=== PATIENT | male | born 1950 | race Caucasian/White ===

== ENCOUNTER 2023-01-17 06:10 | Day surgery (SDC) | payer MEDICARE, OTHER ==
[2023-01-17] VITALS (20 sets, daily range): BP systolic 117–168; BP diastolic 73–95
[~2023-01-17] VITALS: Ht 182.9 cm; Wt 113.4 kg
[2023-01-17] MEDS ORDERED: ATOR80 PO (06:21)
[2023-01-17] MEDS ORDERED: Aspir 8181 MG PO (06:21)
[2023-01-17] MEDS ORDERED: Vitamin D1000 UNI1 PO (06:21)
[2023-01-17] MEDS ORDERED: DILT30 PO (06:22)
[2023-01-17] MEDS ORDERED: DOXYLAMINE (06:23)
[2023-01-17] MEDS ORDERED: NITR.4SL SL (06:24)
[2023-01-17] MEDS ORDERED: POTCIT10 PO (06:24)
--- NOTE | 2023-01-17 07:33 | NUR ---
PATIENT TOELRATED PROCEDURE WELL WITH ANESTHESIA. PATIENT SITTING UP IN BED CONVERSING APPROPRIATELY. VSS ON ROOM AIR.
--- NOTE | 2023-01-17 07:57 | NUR ---
PACEMAKER CHECKED AT BEDSIDE. PATIENT DISCHARGE INSTRUCTIONS AND MEDICATION LIST REVIEWED WITH PATIENT. PIV REMOVED WITHOUT DIFFICULTY, CATHETER INTACT. VSS ON ROOM AIR.
--- NOTE | 2023-01-17 08:07 | NUR ---
PATIENT DISCHARGED HOME AT THIS TIME. PATIENT ABLE TO AMBULATE WITHOUT DIFFICULTY. DISCHARGE PAPERWORK AND BELONGINGS LEFT WITH PATIENT. SPOUSE, SHU ABLE TO TRANSPORT PATIENT HOME.
== END 2023-01-17 22:57 | disposition home or self-care (01) ==
LOC: MHTC 06:10
DX: I48.0 Paroxysmal atrial fibrillation (principal); Z95.818 Presence of other cardiac implants and grafts; I25.10 Atherosclerotic heart disease of native coronary artery without angina pectoris; Z95.0 Presence of cardiac pacemaker; E78.5 Hyperlipidemia, unspecified; I10 Essential (primary) hypertension; E66.9 Obesity, unspecified; Z87.891 Personal history of nicotine dependence; Z88.8 Allergy status to other drugs, medicaments and biological substances; Z68.33 Body mass index [BMI] 33.0-33.9, adult
CPT/HCPCS: 93280; 93312; 93325; A9270; J2704; J7030

== ENCOUNTER 2025-02-22 08:00 | Emergency (ER) | payer MEDICARE ==
[~2025-02-22] VITALS: Ht 182.9 cm; Wt 111.6 kg
[~2025-02-22 08:00] MED LIST: ATOR80 PO; Aspir 8181 MG PO; DILT30 PO; DOXYLAMINE; NITR.4SL SL; POTCIT10 PO; Vitamin D1000 UNI1 PO
[2025-02-22 09:11] LABS: BASOPHILS ABSOLUTE AUTO 0.03 K/mm3 (0.00-0.23); BASOPHILS PERCENT AUTO 1 % (0-2); EOSINOPHILS ABSOLUTE AUTO 0.13 K/mm3 (0.00-0.68); EOSINOPHILS PERCENT AUTO 2 % (0-6); Hematocrit 45.7 % (37.0-53.0); Hemoglobin 15.7 g/dL (13.5-17.5); IMMATURE GRAN ABSOLUTE AUTO 0.03 K/mm3 (0.00-0.10); IMMATURE GRAN PERCENT AUTO 1 % (0-1); LYMPHOCYTES ABSOLUTE AUTO 0.98 K/mm3 (0.84-5.20); LYMPHOCYTES PERCENT AUTO 15 % (21-46); MONOCYTES ABSOLUTE AUTO 0.59 K/mm3 (0.16-1.47); MONOCYTES PERCENT AUTO 9 % (4-13); Mean Corpuscular HGB 33.1 pg (26.0-34.0); Mean Corpuscular HGB Conc 34.4 g/dL (31.5-36.5); Mean Corpuscular Volume 96 fL (80-100); Mean Platelet Volume 9.3 fL (9.1-12.4); NEUTROPHILS PERCENT AUTO 73 % (41-73); Platelet Count 207 K/mm3 (150-400); RDW Standard Deviation 46.2 fL (35.1-46.3); Red Blood Cell Count 4.74 M/mm3 (4.30-5.90); White Blood Cell Count 6.56 K/mm3 (4.00-11.30)
[2025-02-22 09:35] LABS: Magnesium, Blood 2.1 mg/dL (1.6-2.4)
[2025-02-22 09:36] LABS: Albumin/Globulin Ratio 0.9 (0.8-1.8); Bilirubin, Total 0.6 mg/dL (0.1-1.0); Bun/Creatinine Ratio 32.6 (12.0-20.0); Calcium, Blood 8.5 mg/dL (8.5-10.1); Creatinine, Blood 0.77 mg/dL (0.60-1.20); Globulin, Blood 3.5 g/dL (2.2-4.0); Potassium, Blood 4.4 mmol/L (3.5-5.5); Total Protein, Blood 6.5 g/dL (6.4-8.2)
[2025-02-22] MEDS ORDERED: Meclizine HCl 25 MG Tab PO ONE (09:50)
[2025-02-22] MEDS ORDERED: DRAMAMINE25 M1 PO (11:57)
[2025-02-22] MEDS ORDERED: Amoxicillin500 MG PO (11:57)
[2025-02-22 12:00] VITALS: BP 122/86
== END 2025-02-22 12:15 | disposition home or self-care (01) ==
LOC: ER 08:00
PROVIDERS: Physician Assistant
DX: R42 Dizziness and giddiness (principal); E78.5 Hyperlipidemia, unspecified; G47.33 Obstructive sleep apnea (adult) (pediatric); I48.91 Unspecified atrial fibrillation; E11.9 Type 2 diabetes mellitus without complications; I10 Essential (primary) hypertension; I25.2 Old myocardial infarction; Z79.82 Long term (current) use of aspirin; Z79.899 Other long term (current) drug therapy; Z88.8 Allergy status to other drugs, medicaments and biological substances
CPT/HCPCS: 70450; 80053; 83735; 85025; 93005; 93010; 99284-25; A9270